=== PATIENT | female | born 1940 | race Caucasian/White ===

== ENCOUNTER → 2017-05-25 | Outpatient (CLI) | payer MEDICARE, OTHER ==
[~2017-05-25] MED LIST: DULO60CA44 PO; LEVO100T4 PO; OMEP20 PO
== END | disposition home or self-care (01) ==
LOC: LABPV 13:53
PROVIDERS: ATTEND Internal Medicine
DX: E01.0 Iodine-deficiency related diffuse (endemic) goiter (principal)
CPT/HCPCS: 84443

== ENCOUNTER → 2017-05-28 | Outpatient (CLI) | payer MEDICARE, OTHER | END | disposition home or self-care (01) | LOC: RADPV 08:53 | PROVIDERS: ATTEND Internal Medicine | DX: R59.0 Localized enlarged lymph nodes (principal) | CPT/HCPCS: 76536 ==

== ENCOUNTER → 2018-02-22 | Outpatient (CLI) | payer MEDICARE, OTHER | END | disposition home or self-care (01) | LOC: RADPV 15:18 | PROVIDERS: ATTEND Internal Medicine | DX: M43.15 Spondylolisthesis, thoracolumbar region (principal); M51.36 Other intervertebral disc degeneration, lumbar region | CPT/HCPCS: 72100 ==

== ENCOUNTER → 2018-03-04 | Outpatient (CLI) | payer MEDICARE, OTHER | END | disposition home or self-care (01) | LOC: MSR 11:26 | PROVIDERS: ATTEND Internal Medicine | DX: Z11.59 Encounter for screening for other viral diseases (principal); N20.0 Calculus of kidney; N28.1 Cyst of kidney, acquired | CPT/HCPCS: 76770; 86317; 86803 ==

== ENCOUNTER → 2018-04-25 | Outpatient (CLI) | payer MEDICARE, OTHER | END | disposition home or self-care (01) | LOC: RADPV 15:09 | PROVIDERS: ATTEND Internal Medicine | DX: M41.86 Other forms of scoliosis, lumbar region (principal); M51.36 Other intervertebral disc degeneration, lumbar region; M43.16 Spondylolisthesis, lumbar region; Z98.1 Arthrodesis status | CPT/HCPCS: 72100 ==